=== PATIENT | female | born 1945 ===

== ENCOUNTER 2022-06-29 08:08 | Outpatient (CLI) | payer OTHER ==
[2022-06-29] MEDS ORDERED: LIDOCAINE (4%) 40 MG/ML TOPICAL SOLN 50 ML BOTTLE TP ONE (08:54)
== END 2022-06-29 08:09 | disposition home or self-care (01) ==
LOC: WOUND 08:08
PROVIDERS: ATTEND Surgery
DX: L73.2 Hidradenitis suppurativa (principal); I10 Essential (primary) hypertension; G62.9 Polyneuropathy, unspecified; R32 Unspecified urinary incontinence; R26.9 Unspecified abnormalities of gait and mobility; H54.8 Legal blindness, as defined in USA; H40.9 Unspecified glaucoma; R19.7 Diarrhea, unspecified; R05.9 Cough, unspecified; Z90.49 Acquired absence of other specified parts of digestive tract; Z90.710 Acquired absence of both cervix and uterus; Z98.42 Cataract extraction status, left eye; Z98.41 Cataract extraction status, right eye; Z98.890 Other specified postprocedural states; Z85.42 Personal history of malignant neoplasm of other parts of uterus; Z87.891 Personal history of nicotine dependence; Z79.899 Other long term (current) drug therapy
CPT/HCPCS: 99205; G0463